=== PATIENT | male | born 1955 | race Caucasian/White ===

== ENCOUNTER → 2018-01-23 | Outpatient (CLI) | payer BC ==
--- NOTE | 2018-01-24 08:15 | XR ---
EXAMINATION TYPE: XR shoulder complete LT DATE OF EXAM: 01/23/2018 CLINICAL HISTORY: pain COMPARISON: NONE TECHNIQUE: Three views of the left shoulder are obtained. FINDINGS: There is no acute fracture/dislocation evident. The acromioclavicular and glenohumeral joana int spaces appear within normal limits. The visualized ribs are intact and unremarkable. IMPRESSION: 1. There is no acute fracture or dislocation. ICD 10 NO FRACTURE, INITIAL EVALUATION
--- NOTE | 2018-01-24 08:18 | XR ---
EXAMINATION TYPE: XR wrist limited LT DATE OF EXAM: 01/23/2018 CLINICAL HISTORY: pain TECHNIQUE: Frontal, lateral and oblique images of the left wrist are obtained. COMPARISON: None. FINDINGS: There is no acute fracture/dislocation evident. The joint spaces appear within normal salas its. The overlying soft tissue appears unremarkable. IMPRESSION: There is no acute fracture or dislocation seen. ICD 10 NO FRACTURE, INITIAL EVALUATION
== END | disposition home or self-care (01) ==
LOC: RADXRMAIN 16:30
PROVIDERS: ATTEND Physician Assistant
DX: M25.512 Pain in left shoulder (principal); M25.532 Pain in left wrist

== ENCOUNTER → 2018-03-16 | Outpatient (CLI) | payer BC ==
--- NOTE | 2018-03-17 08:57 | MR ---
EXAMINATION TYPE: MR shoulder LT wo con DATE OF EXAM: 03/16/2018 COMPARISON: Outside x-ray dated 02/20/2018 HISTORY: Fell on Left Shoulder 2 months ago TECHNIQUE: Multiplanar, multisequence imaging of the left shoulder is performed without contrast. FINDINGS: There is a large area of marrow edema involving the greater tuberosity. Appears to be flattening tube rosity suggestion of a linear lucency extending into the metaphysis compatible with a hairline fractu re. Abnormal signal involving the superior labrum suggestive of SLAP tear. There appears to be an abnorma l appearance of the inferior glenohumeral ligament suspicious for disruption. Marrow edema along the inferior rim of the glenoid. Suspicion for a Bankart deformity. There is diffuse abnormal signal throughout the anterior fibers of the supraspinatus tendon compatibl e with severe tendinopathy measuring a thickness 19 mm extending a length of 17 mm. No retraction. Infraspinatus tendon appears intact. Subscapularis tendon intact. Biceps tendon intact.. There is a tiny glenohumeral joint effusion. There is arthropathy of the AC joint. Mild impingement upon the supraspinatus musculotendinous juncti on. IMPRESSION: 1. Large area of marrow edema involving the greater tuberosity with findings suggestive of a hairline fracture. 2. SLAP tear. 3. Severe tendinosis distal margin supraspinatus tendon extending a length of 17 mm with partial thro ugh thickness tear but no retraction. 4. Disruption of the inferior glenohumeral ligament with findings suspicious of a Bankart deformity.
== END | disposition home or self-care (01) ==
LOC: RADMRIMAIN 17:41
PROVIDERS: ATTEND Orthopaedic Surgery
DX: S43.432A Superior glenoid labrum lesion of left shoulder, initial encounter (principal); M75.102 Unspecified rotator cuff tear or rupture of left shoulder, not specified as traumatic; M24.212 Disorder of ligament, left shoulder; M75.82 Other shoulder lesions, left shoulder

== ENCOUNTER 2018-11-04 15:09 | Inpatient (IN) | payer BC ==
[2018-11-04] MEDS ORDERED: ALBUTEROL NEBULIZED 2.5 MG/3 ML INHALATION STA (16:55)
[2018-11-04] MEDS ORDERED: IPRATROPIUM 0.5 MG/2.5 ML NEBU INHALATION STA (16:55)
[2018-11-04] MEDS ORDERED: DEXAMETHASONE 4 MG TAB PO STA (16:56)
--- NOTE | 2018-11-04 17:00 | ED ---
General Adult HPI - General Chief complaint: Shortness of Breath Stated complaint: SOB Time Seen by Provider: 11/04/18 16:09 Source: patient Mode of arrival: wheelchair Limitations: no limitations - History of Present Illness Initial comments: Dictation was produced using [employer] dictation software. please excuse any grammatical, word or spelling errors. Chief Complaint: 63-year-old male presents with chief complaint of shortness of breath and left eye pain. History of Present Illness: He is a 63-year-old male presents with multiple complaints. He was seen at [facility] told to come to the emergency department for definitive treatment. Patient states she's been short of breath for several days. He reports that he does have history of COPD. He still does continue to smoke. She also has history of diabetes. Denies constitutional symptoms. Patient states his pain is worse with exertion. Patient also complains of left eye pain. Denies any vision changes or color perception changes. Patient denies any worsening pain with movement. The ROS documented in this emergency department record has been reviewed and confirmed by me. Those systems with pertinent positive or negative responses have been documented in the HPI. All other systems are other negative and/or noncontributory. PHYSICAL EXAM: General Impression: Alert and oriented x3, not in acute distress HEENT: Normocephalic atraumatic, extra-ocular movements intact, pupils equal and reactive to light bilaterally, mucous membranes moist, bilateral eyes appear symmetrical. There is no conjunctival injection. No steamy cornea. Retina seen on funduscopic exam appears benign. No proptosis or enophthalmos. Cardiovascular: Heart regular rate and rhythm, S1&S2 audible, no murmurs, rubs or gallops Chest: Bilateral lung wheezing Abdomen: Bowel sounds present, abdomen soft, non-tender, non-distended, no organomegaly Musculoskeletal: Pulses present and equal in all extremities, 1+ pitting edema bilaterally Motor: no focal deficits noted Neurological: CN II-XII grossly intact, no focal motor or sensory deficits noted Skin: Intact with no visualized rashes Psych: Normal affect and mood ED course: 63-year-old male presents with chief complaint of shortness of breath and left eye pain. Signs upon arrival are within acceptable limits.Patient given breathing treatment, steroids laboratory evaluation obtained. CBC unremarkable. Coag panel unremarkable. Metabolic panel is unremarkable. Cardiac enzymes are negative. Chest x-ray shows no acute processes. Patient reevaluated and still showing signs of respiratory distress. Patient's degree of respiratory distress does not appear to be severe to the point of requiring BiPAP. Patient still wheezy. Patient given Toradol for complaints of sore throat and mild retro-orbital pain. Patient be admitted. Discussed patient with Dr. España who is willing to accept admission. He requests pulmonology be on consult. Patient ordered for [id number] breathing treatments, daily azithromycin and daily prednisone. Patient is understandable and agreeable to disposition. EKG interpretation: Ventricular rate 80, normal sinus rhythm, LA interval 170, QS 90, QTc 431. No LA prolongation, no QTC prolongation, no ST or T-wave changes noted. s. Overall, this EKG is unremarkable - Related Data Allergies Allergy/AdvReac Type Severity Reaction Status Date / Time No Known Allergies Allergy Verified 11/04/18 16:12 Review of Systems ROS Statement: Those systems with pertinent positive or pertinent negative responses have been documented in the HPI. ROS Other: All systems not noted in ROS Statement are negative. Past Medical History Past Medical History: Diabetes Mellitus History of Any Multi-Drug Resistant Organisms: None Reported Past Surgical History: No Surgical Hx Reported Past Psychological History: Depression Smoking Status: Current every day smoker Past Alcohol Use History: None Reported, Occasional Past Drug Use History: None Reported General Exam Limitations: no limitations Course Vital Signs 11/04/18 11/04/18 11/04/18 15:25 16:10 16:30 Temperature 98.4 F Pulse Rate 92 93 80 Respiratory 18 22 22 Rate Blood Pressure 143/106 O2 Sat by Pulse 96 94 L 97 Oximetry 11/04/18 11/04/18 11/04/18 17:00 17:09 17:16 Temperature Pulse Rate 79 82 80 Respiratory 24 Rate Blood Pressure O2 Sat by Pulse 97 Oximetry 11/04/18 11/04/18 11/04/18 17:25 17:30 17:37 Temperature Pulse Rate 87 86 Respiratory 24 25 H Rate Blood Pressure O2 Sat by Pulse 98 Oximetry Medical Decision Making - Lab Data Result diagrams: 11/04/18 16:20 11/04/18 16:20 Lab Results 11/04/18 11/04/18 11/04/18 Range/Units 16:20 16:20 16:20 WBC 7.7 (3.8-10.6) k/uL RBC 5.65 (4.30-5.90) m/uL Hgb 15.4 (13.0-17.5) gm/dL Hct 49.5 (39.0-53.0) % MCV 87.7 (80.0-100.0) fL MCH 27.3 (25.0-35.0) pg MCHC 31.1 (31.0-37.0) g/dL RDW 13.4 (11.5-15.5) % Plt Count 136 L (150-450) k/uL Neutrophils % 81 % Lymphocytes % 9 % Monocytes % 8 % Eosinophils % 1 % Basophils % 0 % Neutrophils # 6.3 (1.3-7.7) k/uL Lymphocytes # 0.7 L (1.0-4.8) k/uL Monocytes # 0.6 (0-1.0) k/uL Eosinophils # 0.0 (0-0.7) k/uL Basophils # 0.0 (0-0.2) k/uL PT (9.0-12.0) sec INR (<1.2) APTT (22.0-30.0) sec Sodium 136 L (137-145) mmol/L Potassium 4.6 (3.5-5.1) mmol/L Chloride 100 (98-107) mmol/L Carbon Dioxide 28 (22-30) mmol/L Anion Gap 8 mmol/L BUN 23 H (9-20) mg/dL Creatinine 1.10 (0.66-1.25) mg/dL Est GFR (CKD-EPI)AfAm 83 (>60 ml/min/1.73 sqM) Est GFR (CKD-EPI)NonAf 72 (>60 ml/min/1.73 sqM) Glucose 97 (74-99) mg/dL Calcium 9.2 (8.4-10.2) mg/dL Magnesium 1.9 (1.6-2.3) mg/dL Total Bilirubin 0.4 (0.2-1.3) mg/dL AST 37 (17-59) U/L ALT 38 (21-72) U/L Alkaline Phosphatase 93 (38-126) U/L Troponin I (0.000-0.034) ng/mL NT-Pro-B Natriuret Pep 38 pg/mL Total Protein 7.1 (6.3-8.2) g/dL Albumin 4.2 (3.5-5.0) g/dL 11/04/18 11/04/18 Range/Units 16:20 16:20 WBC (3.8-10.6) k/uL RBC (4.30-5.90) m/uL Hgb (13.0-17.5) gm/dL Hct (39.0-53.0) % MCV (80.0-100.0) fL MCH (25.0-35.0) pg MCHC (31.0-37.0) g/dL RDW (11.5-15.5) % Plt Count (150-450) k/uL Neutrophils % % Lymphocytes % % Monocytes % % Eosinophils % % Basophils % % Neutrophils # (1.3-7.7) k/uL Lymphocytes # (1.0-4.8) k/uL Monocytes # (0-1.0) k/uL Eosinophils # (0-0.7) k/uL Basophils # (0-0.2) k/uL PT 10.2 (9.0-12.0) sec INR 0.9 (<1.2) APTT 25.7 (22.0-30.0) sec Sodium (137-145) mmol/L Potassium (3.5-5.1) mmol/L Chloride (98-107) mmol/L Carbon Dioxide (22-30) mmol/L Anion Gap mmol/L BUN (9-20) mg/dL Creatinine (0.66-1.25) mg/dL Est GFR (CKD-EPI)AfAm (>60 ml/min/1.73 sqM) Est GFR (CKD-EPI)NonAf (>60 ml/min/1.73 sqM) Glucose (74-99) mg/dL Calcium (8.4-10.2) mg/dL Magnesium (1.6-2.3) mg/dL Total Bilirubin (0.2-1.3) mg/dL AST (17-59) U/L ALT (21-72) U/L Alkaline Phosphatase (38-126) U/L Troponin I <0.012 (0.000-0.034) ng/mL NT-Pro-B Natriuret Pep pg/mL Total Protein (6.3-8.2) g/dL Albumin (3.5-5.0) g/dL Disposition Clinical Impression: COPD exacerbation Disposition: ADMITTED IP TO THIS HOSP Condition: Fair Referrals: Rommel España MD [Primary Care Provider] - 1-2 days Time of Disposition: 18:45
[2018-11-04 17:16] LABS: Basophils % (A) 0 %; Eosinophils % (A) 1 %; HCT 49.5 % (39.0-53.0); HGB 15.4 gm/dL (13.0-17.5); Lymphocytes # (A) 0.7 k/uL (1.0-4.8); Lymphocytes % (A) 9 %; MCH 27.3 pg (25.0-35.0); MCHC 31.1 g/dL (31.0-37.0); MCV 87.7 fL (80.0-100.0); Mean Platelet Volume 9.3; Monocytes # (A) 0.6 k/uL (0-1.0); Monocytes % (A) 8 %; Neutrophils # (A) 6.3 k/uL (1.3-7.7); Neutrophils % (A) 81 %; Platelet Count 136 k/uL (150-450); RBC 5.65 m/uL (4.30-5.90); RDW 13.4 % (11.5-15.5); WBC 7.7 k/uL (3.8-10.6)
[2018-11-04 17:21] LABS: INR 0.9 (<1.2); Partial Thromboplastin Time 25.7 sec (22.0-30.0); Prothrombin Time 10.2 sec (9.0-12.0)
[2018-11-04 17:30] LABS: Albumin 4.2 g/dL (3.5-5.0); Calcium 9.2 mg/dL (8.4-10.2); Magnesium 1.9 mg/dL (1.6-2.3); Potassium 4.6 mmol/L (3.5-5.1); Total Bilirubin 0.4 mg/dL (0.2-1.3); Total Protein 7.1 g/dL (6.3-8.2)
--- NOTE | 2018-11-04 18:26 | XR ---
EXAMINATION TYPE: XR chest 2V DATE OF EXAM: 11/04/2018 COMPARISON: September 28, 2013 HISTORY: Difficulty breathing TECHNIQUE: Frontal and lateral views of the chest are obtained. FINDINGS: There is no heart failure nor confluent pneumonic infiltrate. Costophrenic angles are kaylee r. There are chest leads. Bony thorax is intact. IMPRESSION: No active cardiopulmonary disease. Normal heart. No change.
[2018-11-04] MEDS ORDERED: KETOROLAC 30 MG/ML 1 ML VIAL IVP STA (18:41)
[2018-11-04] MEDS: NICOTINE 14MG/24HR PATCH TRANSDERM SCH (20:43)
[2018-11-04] MEDS: IPRATROPIUM-ALBUTEROL 3 ML NEB INHALATION SCH (21:29)
[2018-11-04] MEDS ORDERED: ACETAMINOPHEN TAB 500 MG TAB PO PRN (22:05)
[2018-11-04] MEDS: SODIUM CHLORIDE 0.9% 1,000 ML IV SCH (23:24)
[2018-11-05] MEDS ORDERED: IPRATROPIUM-ALBUTEROL 3 ML NEB INHALATION PRN (02:26)
[2018-11-05 07:13] LABS: Glucose,Whole Blood 127 mg/dL (75-99)
[2018-11-05] MEDS: INSULIN ASPART (NovoLOG) 100 UNIT/ML VIAL SQ SCH ×3 (07:24→17:13)
[2018-11-05] MEDS: CITALOPRAM HYDROBROMIDE 20 MG TAB PO SCH (07:26)
[2018-11-05] MEDS: AZITHROMYCIN 500 MG TAB PO SCH (07:26)
[2018-11-05] MEDS ORDERED: predniSONE 20 MG TAB PO SCH (09:00)
[2018-11-05] MEDS: OSELTAMIVIR 75 MG CAP PO SCH ×2 (09:07→22:05)
[2018-11-05] MEDS: IPRATROPIUM-ALBUTEROL 3 ML NEB INHALATION SCH ×4 (09:51→21:27)
--- NOTE | 2018-11-05 11:36 | P.HPIM ---
History of Present Illness 63-year-old male presented the emergency room with complaints of increasing shortness of breath. For 2 days patient's had fever chills headache muscle aches was found to have influenza A. Patient is a smoker with a history of COPD and diabetes type 2 Review of Systems Constitutional: Reports chills, Reports fever Eyes: left pain Respiratory: Reports congestion, Reports cough Past Medical History Past Medical History: Diabetes Mellitus History of Any Multi-Drug Resistant Organisms: None Reported Past Surgical History: No Surgical Hx Reported Past Psychological History: Depression Smoking Status: Current every day smoker Past Alcohol Use History: None Reported, Occasional Past Drug Use History: None Reported - Past Family History Mother Family Medical History: Myocardial Infarction (AL) Medications and Allergies Home Medications Medication Instructions Recorded Confirmed Type Citalopram Hydrobromide [CeleXA] 20 mg PO DAILY 11/04/18 11/04/18 History Allergies Allergy/AdvReac Type Severity Reaction Status Date / Time No Known Allergies Allergy Verified 11/04/18 16:12 Physical Exam Vitals: Vital Signs Temp Pulse Pulse Resp BP BP Pulse Ox 11/05/18 11:13 76 11/05/18 11:01 72 11/05/18 07:00 98.6 F 64 16 121/77 94 L 11/05/18 02:54 80 11/05/18 02:44 80 11/04/18 23:00 98.0 F 80 20 97/60 95 11/04/18 21:39 98.2 F 86 20 149/79 93 L 11/04/18 21:37 80 11/04/18 21:29 76 11/04/18 19:00 105 H 20 157/86 95 11/04/18 18:30 96 24 134/81 99 11/04/18 18:00 105 H 20 114/90 96 11/04/18 17:37 25 H 11/04/18 17:30 86 24 98 11/04/18 17:25 87 11/04/18 17:16 80 11/04/18 17:09 82 11/04/18 17:00 79 24 97 11/04/18 16:30 80 22 97 11/04/18 16:10 93 22 94 L 11/04/18 15:25 98.4 F 92 18 143/106 96 Intake and Output 11/04/18 11/05/18 11/05/18 22:59 06:59 14:59 Intake Total 130 140 296 Balance 130 140 296 Intake: Amount of Fluid Infused ( 50 ml) Intake, IV Titration 80 140 Amount Sodium Chloride 0.9% 1, 80 140 000 ml @ 20 mls/hr IV . Q24H KAYLENE Rx#:[id number] Oral 296 Other: Weight 127.006 kg - Constitutional General appearance: mild distress - EENT Left eye pain Eyes: PERRLA Ears: bilateral: normal - Neck Neck: normal ROM - Respiratory Respiratory: bilateral: wheezing - Cardiovascular Rhythm: regular - Gastrointestinal General gastrointestinal: soft - Integumentary Integumentary: normal - Neurologic Neurologic: CNII-XII intact - Psychiatric Psychiatric: A&O x's 3, appropriate affect, intact judgment & insight Results CBC & Chem 7: 11/04/18 16:20 11/04/18 16:20 Labs: Abnormal Lab Results - Last 24 Hours (Table) 11/04/18 11/04/18 11/04/18 Range/Units 16:20 16:20 19:26 Plt Count 136 L (150-450) k/uL Lymphocytes # 0.7 L (1.0-4.8) k/uL Sodium 136 L (137-145) mmol/L BUN 23 H (9-20) mg/dL POC Glucose (mg/dL) (75-99) mg/dL Influenza Type A RNA Detected H (Not Detectd) 11/05/18 Range/Units 07:12 Plt Count (150-450) k/uL Lymphocytes # (1.0-4.8) k/uL Sodium (137-145) mmol/L BUN (9-20) mg/dL POC Glucose (mg/dL) 127 H (75-99) mg/dL Influenza Type A RNA (Not Detectd) Chest x-ray: report reviewed Thrombosis Risk Factor Assmnt - Choose All That Apply Any of the Below Risk Factors Present?: No Other Risk Factors: Yes Each Risk Factor Represents 2 Points: Age 61-74 years Other congenital or acquired thrombophilia - If yes, enter type in comment: No Thrombosis Risk Factor Assessment Total Risk Factor Score: 2 Thrombosis Risk Factor Assessment Level: Low Risk Assessment and Plan Plan: Assessment COPD exacerbation Influenza A Tobacco use Diabetes type 2 Left eye pain Plan On Tamiflu antibiotics steroids bronchodilators Consultation pulmonology Left eye pain ophthalmology
[2018-11-05 12:05] LABS: Glucose,Whole Blood 151 mg/dL (75-99)
[2018-11-05 14:36] LABS: Hemoglobin A1C 6.4 % (4.0-6.0)
--- NOTE | 2018-11-05 16:48 | CONS ---
CONSULTATION This is a pulmonary critical care consultation. DATE OF SERVICE: November 05, 2018. REASON FOR CONSULTATION: Shortness of breath. HISTORY OF PRESENT ILLNESS: A 63-year-old male who was seen in the emergency room by Dr. Brand yesterday. The patient apparently presented to the emergency room with complaints of shortness of breath. The patient was apparently seen initially at [facility] and told to come to the emergency department for definitive therapy. The patient admits to increasing shortness of breath for a couple of days. He does have underlying COPD, but apparently has never seen a lung doctor. His primary is Dr. Rommel España. He still does continue to smoke. His complaints included muscle aches and joint aches, but in addition to all of that, the patient was found to have a fever, chills, cough, phlegm production and difficulty breathing with wheezing and chest tightness. He denies any nausea, vomiting or diarrhea. There is no chest pain or chest pressure. The patient is feeling a bit better today than he did yesterday. He has been smoking for a number of years. The patient did not get a flu shot this fall. His chest x-ray that was done showed no evidence of any infiltrates. ALLERGIES: His allergies are denied. MEDICATIONS: Home medications were just Celexa. PAST MEDICAL HISTORY: Includes COPD, although the patient is not currently being treated. SURGICAL HISTORY: Negative. FAMILY HISTORY: Noncontributory. SOCIAL HISTORY: Positive for ongoing tobacco use with nicotine addiction. He uses alcohol occasionally and there is no illicit drug use. The rest of the history is not too remarkable. There is a vague history of diabetes and depression although he denies it. He is on Celexa. REVIEW OF SYSTEMS: CONSTITUTIONAL: Fever, chills. Neurologic is negative. HEENT negative. Cardiovascular negative. Pulmonary: Shortness of breath. Chest tightness, wheezing, cough with some phlegm production but mostly nonproductive. GI negative. negative. Rheumatologic: Negative. Immunologic negative. ENDOCRINOLOGIC: Negative. DERMATOLOGIC: Negative. PHYSICAL EXAMINATION: Current vital signs are reviewed. Temperature is 98.6, heart rate 72, respiratory rate 16, blood pressure 121/77, room-air saturation 94%. Mean arterial pressure is 91. Appears in no acute distress. HEENT examination is grossly unremarkable. Mucous membranes are moist. No oral lesions. Not requiring any supplemental oxygen. NECK: Supple. Full range of motion. No adenopathy or thyromegaly. Cardiovascular examination reveals regular rhythm rate. S1, S2 normal. Heart rate in mid 70s. No murmur. LUNGS: Coarse inspiratory and expiratory wheezes and rhonchi. There is prolongation on forced maneuver. Breath sounds are equal bilaterally but diminished throughout. No crackles. Adventitious lung sounds are more prominent on forced maneuver. ABDOMEN: Soft. Bowel sounds are heard. There is no masses or tenderness. Extremities are intact. No cyanosis, clubbing, or edema. Skin without rash. Neurologic examination is brief but nonfocal. LAB DATA: Reviewed. White count 7.7, hemoglobin 15.4, hematocrit 49.5, platelet count 136,000. PT 10.2, INR 0.9, PTT is 25.7. Sodium 136, potassium 4.6, chloride 100, CO2 28, anion gap 8, BUN and creatinine were 23 and 1.10. Influenza A studies were positive. Chest x-ray shows no acute abnormality. Microbiologic studies are negative. MEDICATIONS: Reviewed. Currently, he is on Tylenol, Zithromax, Celexa, insulin, albuterol and Atrovent updrafts q.i.d. and p.r.n. nicotine patch, Tamiflu, prednisone, and a saline IV. ASSESSMENT: 1. Chronic obstructive pulmonary disease exacerbation, complicated by purulent tracheobronchitis and likely triggered by influenza A infection. 2. Influenza A infection. 3. Probable chronic obstructive pulmonary disease, although the patient has never seen a grab jack worker and never had PFTs. 4. Ongoing tobacco use, nicotine addiction. 5. Vague history of depression. 6. Vague history of diabetes. 7. Vague history of hypertension. PLAN: The patient's medications are reviewed. He is on prednisone. We will add some Symbicort. He is already on updrafts. Additional recommendations and suggestions are forthcoming. Prognosis is guarded. He should continue on his Tamiflu for the full 5 days. The oral antibiotic in the form of azithromycin is fine. No additional recommendations are made at this time. The patient will follow up in our office and will need a complete pulmonary function test (PFT). MMODL / IJN: [id number] / [facility]
[2018-11-05 16:55] LABS: Glucose,Whole Blood 129 mg/dL (75-99)
[2018-11-05] MEDS: methylPREDNISolone SOD SUCCI 125 MG/2 ML VIAL IV SCH (17:15)
[2018-11-05 20:27] LABS: Glucose,Whole Blood 138 mg/dL (75-99)
[2018-11-05] MEDS: SYMBICORT 160-4.5 MCG INHALER INHALATION SCH (21:27)
[2018-11-05] MEDS: NICOTINE 14MG/24HR PATCH TRANSDERM SCH (22:03)
[2018-11-06] MEDS: INSULIN ASPART (NovoLOG) 100 UNIT/ML VIAL SQ SCH ×3 (00:15→12:50)
[2018-11-06] MEDS: methylPREDNISolone SOD SUCCI 125 MG/2 ML VIAL IV SCH ×3 (00:20→12:50)
[2018-11-06] MEDS: SODIUM CHLORIDE 0.9% 1,000 ML IV SCH (02:53)
[2018-11-06 07:01] LABS: Glucose,Whole Blood 145 mg/dL (75-99)
[2018-11-06] MEDS: IPRATROPIUM-ALBUTEROL 3 ML NEB INHALATION SCH ×2 (07:10→11:13)
[2018-11-06] MEDS: SYMBICORT 160-4.5 MCG INHALER INHALATION SCH (07:10)
[2018-11-06] MEDS: CITALOPRAM HYDROBROMIDE 20 MG TAB PO SCH (07:36)
[2018-11-06] MEDS: OSELTAMIVIR 75 MG CAP PO SCH (07:37)
[2018-11-06] MEDS: AZITHROMYCIN 500 MG TAB PO SCH (07:37)
[2018-11-06 08:04] VITALS: BP 125/72; RESP 16; TEMP 97.4
--- NOTE | 2018-11-06 10:45 | CONS ---
CONSULTATION Today's date is 11/06/2018. HISTORY: This is a 63-year-old white male who presented to the emergency room complaining of shortness of breath. The patient stated that he had a fever of 2 days duration along with headaches, muscle aches, and pain behind his left eye. On workup, he was diagnosed with influenza type A. The patient also has a history of type 2, diabetes, and COPD. He states that he has not had an eye exam in over 20 years. EXAM: Visual acuity at near with correction measured 20/20 bilaterally. The pupils were equal and reactive to light. There was no afferent defect. Extraocular movements were full in all gaze positions. On penlight exam, the anterior segments were "clear and quiet" bilaterally. There appeared to be mild nuclear sclerotic cataract changes. Fundus exam revealed normal-appearing maculae, vessels and discs. IMPRESSION: 1. Eye pain of left eye. Because of the nature of this pain, it being of "several days duration and pressure sensation", it is very likely this is secondary to a sinus etiology. The patient in fact states that since he has been on antibiotics and admission to the hospital, the pain has subsided significantly and it is nearly resolved at this time. I would recommend continuing the antibiotics and I believe this is likely to resolve upon discharge with an oral antibiotic. 2. Diabetic retinopathy. The patient has not had a an eye exam in some time, and upon discharge he should certainly be seen in an outpatient setting where a more thorough exam can be accomplished. 3. Nuclear sclerosis. The cataracts appear mild and it is not likely that they require attention at this time. MMODL / IJN: [id number] /
[2018-11-06 11:15] VITALS: PULSE 80
[2018-11-06 11:57] LABS: Glucose,Whole Blood 140 mg/dL (75-99)
--- NOTE | 2018-11-06 12:58 | P.PN ---
Subjective Progress Note Date: 11/06/18 Principal diagnosis: Acute COPD exacerbation, complicated with purulent tracheobronchitis, and influenza A infection A 61-year-old white male patient with history of COPD, ongoing tobacco use, diabetes, hypertension and depression who was admitted to the hospital 11/04/2018 with complaints of worsening shortness of breath, muscle aches and joint aches fever, chills cough, phlegm production. Patient was as a for influenza A, he was admitted for inpatient management. Today on 11/06/2018 were seen patient in follow-up on medical surgical floor. He is calm and comfortable, he states his breathing is improving, he is currently on 2 L per nasal cannula of oxygen, and his sat is 94-98%, feeling better, less congested and wheezy, has some residual wheezing, but overall improving, afebrile. Hemodynamically stable, no culture sputum, as the patient could not produce a sputum for analysis. He is on oral course of Tamiflu, IV steroids, and oral Zithromax. Objective - Vital Signs Vital signs: Vital Signs Temp 97.4 F L 11/06/18 07:00 Pulse 80 11/06/18 11:22 Resp 16 11/06/18 07:00 BP 125/72 11/06/18 07:00 Pulse Ox 91 L 11/06/18 11:42 Intake & Output 11/05/18 11/06/18 11/06/18 18:59 06:59 18:59 Intake Total 1028 Balance 1028 Intake: Oral 1028 Other: Voiding Method Toilet # Voids 2 1 - Exam GENERAL EXAM: Alert, pleasant, 63-year-old white male on 2 L per nasal cannula, comfortable in no apparent distress. HEAD: Normocephalic/atraumatic. EYES: Normal reaction of pupils, equal size. Conjunctiva pink, sclera white. NOSE: Clear with pink turbinates. THROAT: No erythema or exudates. NECK: No masses, no JVD, no thyroid enlargement, no adenopathy. CHEST: No chest wall deformity. Symmetrical expansion. LUNGS: Equal air entry with some scattered wheezes, overall less. Spastic compared to yesterday's exam CVS: Regular rate and rhythm, normal S1 and S2, no gallops, no murmurs, no rubs ABDOMEN: Soft, nontender. No hepatosplenomegaly, normal bowel sounds, no guarding or rigidity. EXTREMITIES: No clubbing, no edema, no cyanosis, 2+ pulses and upper and lower extremities. MUSCULOSKELETAL: Muscle strength and tone normal. SPINE: No scoliosis or deformity SKIN: No rashes CENTRAL NERVOUS SYSTEM: Alert and oriented -3. No focal deficits, tone is normal in all 4 extremities. PSYCHIATRIC: Alert and oriented -3. Appropriate affect. Intact judgment and insight. - Labs CBC & Chem 7: 11/04/18 16:20 11/04/18 16:20 Labs: Abnormal Lab Results - Last 24 Hours (Table) 11/04/18 11/05/18 11/05/18 Range/Units 16:20 16:44 20:26 POC Glucose (mg/dL) 129 H 138 H (75-99) mg/dL Hemoglobin A1c 6.4 H (4.0-6.0) % 11/06/18 11/06/18 Range/Units 06:58 11:46 POC Glucose (mg/dL) 145 H 140 H (75-99) mg/dL Hemoglobin A1c (4.0-6.0) % Assessment and Plan Plan: Assessment: #1. Exacerbation of chronic obstructive pulmonary disease complicated by pro longed tracheobronchitis and likely triggered by influenza A infection #2. Influenza A infection #3. Suspect underlying COPD #4. Ongoing tobacco use, nicotine addiction #5. History of depression #6. History of diabetes #7. History of hypertension Plan: Patient is improving, let us signs are stable, no acute events overnight, from pulmonary perspective he can be discharged home today to finish his course of Tamiflu, oral antibiotics, and prednisone taper, will need home oxygen asses sment, he will need to rescue inhaler at home, we will do PFT in the office, he will need follow-up with Dr. Gutierres in the office I performed a history & physical examination of the patient and discussed their management with my nurse practitioner, Jordana Molina. I reviewed the nurse practitioner's note and agree with the documented findings and plan of care. Lung sounds are positive for scattered wheezes. The findings and the impression was discussed with the patient. I attest to the documentation by the nurse practitioner. Time with Patient: Less than 30
--- NOTE | 2018-11-06 13:22 | P.DS ---
<Jackie Haney - Last Filed: 11/06/18 13:06> Providers Expected date of discharge: 11/06/18 Hospital Course: Final Diagnoses: -Exacerbation of chronic obstructive pulmonary disease,probably r/t infleunza A,complicated by tracheobronchitis - Influenza A infection - Possible underlying COPD, PFTs outpatient - Ongoing nicotine abuse, dependence - diabetes mellitus this is a 63-year-old gentleman admitted with acute COPD exacerbation, tracheobronchitis,influenza a in a patient with ongoing nicotine useand multiple other medical issues. Evaluated by ophthalmology, pulmonary. Maintained on gentle IV fluid hydration, nebulized bronchodilators, steroids, antibiotics, Tamiflu. significant clinical improvement. O2 sat on room air after ambulation 91%. Cleared by all consults for discharge. Patient is being discharged home in stable condition with guarded prognosis. EXAM: GENERAL: Alert and oriented 3, no acute distress LUNGS: Equal air entry with occasional fine expiratory scattered wheeze CVS: Regular rate and rhythm, normal S1 and S2, no gallops, no murmurs, no rubs ABDOMEN: Soft, nontender. No hepatosplenomegaly, normal bowel sounds, no guarding or rigidity. NERVOUS: No focal deficits The impression and plan of care has been dictated as directed. : I performed a history and examination of this patient, discussed the same with the dictator. I agree with the dictator's note ,documented as a scribe. Any additional findings or plans will be noted. Time taken: 35 minutes Patient Condition at Discharge: Stable Plan - Discharge Summary Discharge Rx Participant: No New Discharge Prescriptions: New Nicotine 14Mg/24Hr Patch [Habitrol] 1 patch TRANSDERM Q24H #30 patch predniSONE 10 mg PO DIRECTED #30 tab Albuterol Sulfate [Proair Hfa] 2 puff INHALATION Q6HR PRN #1 inhaler PRN Reason: Shortness Of Breath Budesonide-Formot 160-4.5 Mcg [Symbicort 160-4.5 Mcg Inhaler] 2 puff INHALATION RT-BID #1 inh Oseltamivir [Tamiflu] 75 mg PO Q12HR #7 cap Azithromycin [Zithromax] 500 mg PO DAILY #5 tab Continue Citalopram Hydrobromide [CeleXA] 20 mg PO DAILY Discharge Medication List Citalopram Hydrobromide [CeleXA] 20 mg PO DAILY 11/04/18 [History] Albuterol Sulfate [Proair Hfa] 2 puff INHALATION Q6HR PRN #1 inhaler 11/06/18 [Rx] Azithromycin [Zithromax] 500 mg PO DAILY #5 tab 11/06/18 [Rx] Budesonide-Formot 160-4.5 Mcg [Symbicort 160-4.5 Mcg Inhaler] 2 puff INHALATION RT-BID #1 inh 11/06/18 [Rx] Nicotine 14Mg/24Hr Patch [Habitrol] 1 patch TRANSDERM Q24H #30 patch 11/06/18 [Rx] Oseltamivir [Tamiflu] 75 mg PO Q12HR #7 cap 11/06/18 [Rx] predniSONE 10 mg PO DIRECTED #30 tab 11/06/18 [Rx] Follow up Appointment(s)/Referral(s): Rommel España MD [Primary Care Provider] - 3 Days (Please call and schedule appointment) [facility] [NON-STAFF] - As Needed (Glucometer and supplies) Santino Nunez MD [STAFF PHYSICIAN] - 10 Days (Please call and schedule appointment) Liv Espinoza MD [STAFF PHYSICIAN] - 1 Week (Please call and schedule appointment.) Ambulatory/Diagnostic Orders: Complete Blood Count w/diff [LAB.AMB] Time Frame: 3 Days, Location: None Selected Patient Instructions/Handouts: Influenza (DC), COPD (Chronic Obstructive Pulmonary Disease) (DC) Activity/Diet/Wound Care/Special Instructions: 91% on room air after ambulation Diet: Cardiac. consistent carb Activity: Limited until follow up check you your doctor before going back to work Discharge Disposition: HOME SELF-CARE <EmilyAbenaValdemar E - Last Filed: 11/10/18 05:45> Providers Date of admission: 11/04/18 18:41 Attending physician: Rommel España Consults: 11/04/18 18:41 Consult Physician Routine Consulting Provider: Liv Espinoza Consult Reason/Comments: copd Do you want consulting provider notified?: Yes 11/05/18 11:31 Consult Physician Urgent Consulting Provider: Santino Nunez Consult Reason/Comments: eye pain left Do you want consulting provider notified?: Yes Primary care physician: Rommel España Hospital Course: I have discussed the plan and I have reviewed the note with Mendez Nuno and I agree with it except what is mentioned below Pt is seen and examined by me at bed side pt was cleared by pulmonary team for discharge Pt was instructed about the problems and management plan and Pt verbalized understanding and acceptance Pt is found stable and can be discharged to the community but needs follow up as outpt. pt was instructed to follow up with his pcp and import export clerk in one week and he agrees
== END 2018-11-06 14:06 | disposition home or self-care (01) | DRG 192 ==
LOC: EC 15:09 → 4SSUR 18:41
PROVIDERS: ADMIT Family Medicine; ATTEND Family Medicine
DX: J44.1 Chronic obstructive pulmonary disease with (acute) exacerbation (principal); E11.319 Type 2 diabetes mellitus with unspecified diabetic retinopathy without macular edema; E11.36 Type 2 diabetes mellitus with diabetic cataract; F17.200 Nicotine dependence, unspecified, uncomplicated; F32.9 Major depressive disorder, single episode, unspecified; I10 Essential (primary) hypertension; J10.1 Influenza due to other identified influenza virus with other respiratory manifestations; H57.12 Ocular pain, left eye; R60.9 Edema, unspecified; Z79.899 Other long term (current) drug therapy; Z82.49 Family history of ischemic heart disease and other diseases of the circulatory system
CPT/HCPCS: 36415; 71046; 80053; 83036; 83735; 83880; 84484; 85025; 85610; 85730; 87502; 93005; 94640; 96374; 99285

== ENCOUNTER 2019-05-01 12:45 | Emergency (ER) | payer BC ==
[2019-05-01 12:50] VITALS: TEMP 97.6
[2019-05-01] MEDS ORDERED: HYDROmorphone 1 MG/ML 1 ML SYRINGE IVP STA (12:54)
--- NOTE | 2019-05-01 13:04 | ED ---
General Adult HPI - General Chief complaint: Extremity Injury, Lower Stated complaint: Fell /leg caught in ladder Time Seen by Provider: 05/01/19 12:47 Source: EMS, RN notes reviewed, old records reviewed Mode of arrival: EMS Limitations: no limitations - History of Present Illness Initial comments: 63-year-old male patient presents ED chief complaint of right tibia/fibula, ankle pain. Patient reports that he was on a ladder approximately 3 steps up, patient reports that he lost his balance. Patient. He fell on his back however his right lower extremity was caught in the ladder. Patient reports he felt a pop in his ankle. Patient denies any trauma to head or neck. Denies any use of blood denies. Patient denies any chest pain or shortness of breath. Denies all other complaints at this time. Systemic: Pt denies fatigue, fever/chills, rash. Pt denies weakness, night sweats, weight loss. Neuro: Pt denies headache, visual disturbances, syncope or pre-syncope. HEENT: Pt denies ocular discharge or irritation, otalgia, rhinorrhea, pharyngitis or notable lymphadenopathy. Cardiopulmonary: Pt denies chest pain, SOB, heart palpitations, dyspnea on exertion. Abdominal/GI: Pt denies abdominal pain, n/v/d. : Pt denies dysuria, burning w/ urination, frequency/urgency. Denies new onset urinary or bowel incontinence. MSK: Pt denies loss of strength or function in extremities. Neuro: Pt denies new onset weakness, paresthesias. - Related Data Previous Rx's Medication Instructions Recorded Hydrocodone/Acetaminophen [[place] 1 each PO Q6HR PRN 3 Days #12 tab 05/01/19 5-325] Allergies Allergy/AdvReac Type Severity Reaction Status Date / Time No Known Allergies Allergy Verified 05/01/19 14:07 Review of Systems ROS Statement: Those systems with pertinent positive or pertinent negative responses have been documented in the HPI. ROS Other: All systems not noted in ROS Statement are negative. Past Medical History Past Medical History: Diabetes Mellitus History of Any Multi-Drug Resistant Organisms: None Reported Past Surgical History: No Surgical Hx Reported Past Psychological History: Depression Smoking Status: Current every day smoker Past Alcohol Use History: Rare Past Drug Use History: None Reported - Past Family History Mother Family Medical History: Myocardial Infarction ([place]) General Exam - General Exam Comments Initial Comments: Constitutional: NAD, AOX3, Pt has pleasant affect. HEENT: NC/AT, trachea midline, neck supple, no lymphadenopathy. Posterior pharynx non erythematous, without exudates. External ears appear normal, without discharge. Mucous membranes moist. Eyes PERRLA, EOM intact. There is no scleral icterus. No pallor noted. Cardiopulmonary: RRR, no murmurs, rubs or gallops, no JVD noted. Lungs CTAB in anterior and posterior marroquin. No peripheral edema. Abdominal exam: Abdomen soft and non-distended. Abdomen non-tender to palpation in all 4 quadrants. Bowel sounds active in LLQ. No hepatosplenomegaly. No ecchymosis Neuro: CN II-XII grossly intact. No nuchal rigidity. No raccon eyes, no carpenter sign, no hemotympanum. No cervical spinal tenderness. MSK: The lateral aspect of right ankle tender to palpation. Soft tissue swelling noted. Distal pulses intact and equal. Capillary refill less than 2 seconds. Posterior ankle splint placed, patient of neurovascularlyvascular intact after splint placement. No posterior calf tenderness bilaterally, homans sign negative bilaterally. Posterior tibialis and radial pulse +2 bilaterally. Sensation intact in upper and lower extremities. Full active ROM in upper and lower extremities, 5/5 stregnth. Limitations: no limitations Course Vital Signs 05/01/19 05/01/19 12:47 14:49 Temperature 97.6 F Pulse Rate 79 65 Respiratory 16 18 Rate Blood Pressure 164/94 121/80 O2 Sat by Pulse 99 98 Oximetry Medical Decision Making - Medical Decision Making 63-year-old male patient presents ED chief complaint of right tibia/fibula, ankle pain. Patient reports that he was on a ladder approximately 3 steps up, patient reports that he lost his balance. Patient. He fell on his back however his right lower extremity was caught in the ladder. Patient reports he felt a pop in his ankle. Patient denies any trauma to head or neck. Denies any use of blood denies. Patient denies any chest pain or shortness of breath. Denies all other complaints at this time. Patient vital signs stable, afebrile. Physical exam displayed: The lateral aspect of right ankle tender to palpation. Soft tissue swelling noted. Distal pulses intact and equal. Capillary refill less than 2 seconds. Posterior ankle splint placed, patient of neurovascularlyvascular intact after splint placement. A Benavides ankle display lateral subluxation of the talus relation to the distal tibia. Metaphyseal fracture of the fibula. Tiny avulsion fracture medial malleolus. Plain film tibia/fibula, foot do not display acute process. Patient placed in posterior ankle splint. Patient will be discharged with orthopedic follow-up. Patient will use crutches, left her with right lower extremity. Case discussed with Dr. Jaramillo. Disposition Clinical Impression: Fracture of distal fibula Disposition: HOME SELF-CARE Condition: Stable Instructions (If sedation given, give patient instructions): Ankle Fracture (ED) Additional Instructions: Patient to adhere to previously discussed treatment plan and will take medication(s) as directed. Patient to follow up with PCP in 1-2 days. Patient to return to ED if symptoms do not improve. Do not bear weight on right lower extremity. Follow-up with orthopedic surgeon on Friday. Use pain medication only as needed. Prescriptions: Hydrocodone/Acetaminophen [[place] 5-325] 1 each PO Q6HR PRN 3 Days #12 tab PRN Reason: Pain Is patient prescribed a controlled substance at d/c from ED?: Yes When asked, does pt state using other controlled substances?: No If prescribed controlled substance>3 days was MAPS reviewed?: Prescribed <3 Days If opioid is for acute pain is fill amount 7 days or less?: Yes If Rx opioid, was Start Talking consent form obtained?: Yes Referrals: Rommel España MD [Primary Care Provider] - 1-2 days Rodrigue Blunt DO [Medical Doctor] - 1-2 days
--- NOTE | 2019-05-01 13:27 | XR ---
EXAMINATION TYPE: XR ankle complete RT DATE OF EXAM: 05/01/2019 COMPARISON: None HISTORY: Pain fall TECHNIQUE: Three-view right ankle FINDINGS: There is an oblique fracture of the distal metaphyseal fibula. There is lateral subluxation of the talus in relation to the tibia. Tiny avulsion from the inferior medial malleolus is not exclu ded. Posterior tibial fracture is not clearly identified. Follow-up exams can be performed 7-10 days from acute trauma for continued pain. IMPRESSION: 1. Lateral subluxation of the talus in relation to the distal tibia. 2. Metaphyseal fracture of the fibula. 3. Tiny avulsion from the medial malleolus is suspected.
--- NOTE | 2019-05-01 13:28 | XR ---
EXAMINATION TYPE: XR tibia fibula RT DATE OF EXAM: 05/01/2019 COMPARISON: None HISTORY: Fall, pain TECHNIQUE: 2 view right tibia and fibula proximal portions FINDINGS: The proximal tibia and fibula appear intact. Soft tissues appear normal. Knee joint space i s unremarkable. Distal ankle is not included within the [id number]. IMPRESSION: 1. No acute osseous abnormality within the proximal portions of the right tibia and fibula.
--- NOTE | 2019-05-01 13:39 | XR ---
EXAMINATION TYPE: XR foot complete RT DATE OF EXAM: 05/01/2019 COMPARISON: None HISTORY: Three-view right foot TECHNIQUE: Right foot is examined in 3 projections. FINDINGS: No acute fractures or dislocations are evident. Joint spaces are preserved. Soft tissues ar e unremarkable. Plantar calcaneal heel spur is present. Please also see ankle dictation same date. IMPRESSION: 1. No acute osseous abnormality within the foot. 2. Plantar calcaneal heel spur. 3. Please see ankle dictation same date.
[2019-05-01 14:51] VITALS: BP 121/80; PULSE 65; RESP 18
[2019-05-01] MEDS ORDERED: HYDROmorphone 0.5 MG/0.5 ML SYRINGE IM STA (15:09)
== END 2019-05-01 15:50 | disposition home or self-care (01) ==
LOC: EC 12:45
DX: S82.831A Other fracture of upper and lower end of right fibula, initial encounter for closed fracture (principal); F17.200 Nicotine dependence, unspecified, uncomplicated; W11.XXXA Fall on and from ladder, initial encounter; Y92.009 Unspecified place in unspecified non-institutional (private) residence as the place of occurrence of the external cause
CPT/HCPCS: 73590; 73610; 73630; 99284; 29515; 96374; 96372; J1170 ×2

== ENCOUNTER → 2019-05-07 | Outpatient (CLI) | payer BC ==
--- NOTE | 2019-05-07 12:17 | XR ---
EXAMINATION TYPE: XR chest 2V DATE OF EXAM: 05/07/2019 COMPARISON: 11/04/2018 HISTORY: Preoperative evaluation for ankle surgery. History of COPD. TECHNIQUE: Frontal and lateral views of the chest are obtained. FINDINGS: There is no focal air space opacity, pleural effusion, or pneumothorax seen. Pulmonary hy perinflation and flattening of the diaphragms relates to the patient's known COPD. The cardiac silhou ette size is upper limits of normal but stable. The osseous structures are intact. IMPRESSION: No acute cardiopulmonary process.
== END ==
LOC: LABWHC1 09:40
PROVIDERS: ATTEND Family Medicine
DX: J44.9 Chronic obstructive pulmonary disease, unspecified (principal)
CPT/HCPCS: 71046

== ENCOUNTER → 2021-01-12 | Outpatient (CLI) | payer BC ==
--- NOTE | 2021-01-12 12:03 | XR ---
EXAMINATION TYPE: XR chest 2V DATE OF EXAM: 01/12/2021 COMPARISON: 05/07/2019 HISTORY: Difficulty breathing, right-sided discomfort TECHNIQUE: Frontal and lateral views of the chest are obtained. FINDINGS: Heart size is within normal limits. Trachea is midline. No focal consolidation, pneumothor ax or pleural effusion. No significant interval change. IMPRESSION: No acute pulmonary disease. No significant interval change.
== END | disposition home or self-care (01) ==
LOC: RADXRMAIN 11:42
PROVIDERS: ATTEND Nurse Practitioner
DX: R06.00 Dyspnea, unspecified (principal)
CPT/HCPCS: 71046

== ENCOUNTER 2022-03-30 19:25 | Observation (INO) | payer BC, MEDICARE ==
--- NOTE | 2022-03-30 19:39 | ED ---
General Adult HPI - General Chief complaint: Syncope Stated complaint: Near syncope Time Seen by Provider: 03/30/22 19:26 Source: patient, EMS, RN notes reviewed Mode of arrival: EMS Limitations: no limitations - History of Present Illness Initial comments: Patient is a pleasant 67-year-old male presenting to the emergency Department with syncopal versus near syncopal episode. Patient was at the park with family. Patient suddenly felt nauseated and short of breath and felt like he is about to pass out. Patient does not believe he passed out however states he may have for a second. Patient states he may feel a little bit short of breath at this time otherwise no other complaints. No chest pain. No abdominal pain. No headache or confusion or weakness. No history of similar symptoms previously. - Related Data Home Medications Medication Instructions Recorded Confirmed Citalopram Hydrobromide [CeleXA] 10 mg PO HS 03/30/22 03/30/22 Allergies Allergy/AdvReac Type Severity Reaction Status Date / Time No Known Allergies Allergy Verified 03/30/22 21:20 Review of Systems ROS Statement: Those systems with pertinent positive or pertinent negative responses have been documented in the HPI. ROS Other: All systems not noted in ROS Statement are negative. Constitutional: Denies: fever Eyes: Denies: eye pain ENT: Denies: ear pain Respiratory: Reports: as per HPI Cardiovascular: Denies: chest pain Endocrine: Denies: fatigue Gastrointestinal: Reports: nausea. Denies: abdominal pain, vomiting Genitourinary: Denies: urgency Musculoskeletal: Denies: back pain Skin: Denies: rash Neurological: Denies: headache, weakness, numbness, paresthesias, confusion Past Medical History Past Medical History: COPD, Diabetes Mellitus History of Any Multi-Drug Resistant Organisms: None Reported Past Surgical History: Orthopedic Surgery Past Psychological History: Depression Smoking Status: Current every day smoker Past Alcohol Use History: Rare Past Drug Use History: None Reported - Past Family History Mother Family Medical History: Myocardial Infarction ([place]) General Exam Limitations: no limitations General appearance: alert, in no apparent distress Head exam: Present: normocephalic Eye exam: Present: normal appearance, PERRL, EOMI ENT exam: Present: normal oropharynx Neck exam: Present: normal inspection Respiratory exam: Present: normal lung sounds bilaterally. Absent: chest wall tenderness Cardiovascular Exam: Present: regular rate, normal rhythm Expanded Peripheral pulses: 2+: Radial (R), Radial (L), Dorsalis Pedis (R), Dorsalis Pedis (L) GI/Abdominal exam: Present: soft. Absent: distended, tenderness, guarding, rebound, rigid, pulsatile mass Extremities exam: Present: normal inspection. Absent: pedal edema, calf tenderness Neurological exam: Present: alert, oriented X3, CN II-XII intact. Absent: motor sensory deficit Expanded Neurological exam: Present: protecting the airway Speech: Present: fluid speech Cranial nerves: EOM's Intact: Normal Sensory exam: Upper Extremity Light Touch: Normal, Lower Extremity Light Touch: Normal Motor strength exam: RUE: 5, LUE: 5, RLE: 5, LLE: 5 Eye Response: (4) open spontaneously Motor Response: (6) obeys commands Verbal Response: (5) oriented Psychiatric exam: Present: normal affect, normal mood Skin exam: Present: normal color Course Vital Signs 03/30/22 19:29 Temperature 97.2 F L Pulse Rate 94 Respiratory 22 Rate Blood Pressure 144/98 O2 Sat by Pulse 98 Oximetry EKG Findings - EKG Comments: EKG Findings:: Sinus rhythm rate 84. TN 19. QRS 110. QT 366. QTc 407. Left axis. Incomplete right bundle-branch block. No acute ST change. Medical Decision Making - Medical Decision Making Patient reevaluated and resting comfortably in bed. Patient states he did feel a little bit short of breath when he got up to move to the computed tomography scan table. Patient and family have been updated on results and plan. Practitioner Jeffy has been paged for admission covering with Dr. Galindo, admits for Dr. España. Family adds that patient did have a full syncopal episode and was unresponsive for several seconds. Patient did complain of nausea and shortness of breath and was diaphoretic. - Lab Data Result diagrams: 03/30/22 19:59 03/30/22 21:19 Lab Results 03/30/22 03/30/22 03/30/22 Range/Units 19:59 19:59 21:19 WBC 12.9 H (3.8-10.6) k/uL RBC 5.43 (4.30-5.90) m/uL Hgb 15.5 (13.0-17.5) gm/dL Hct 48.7 (39.0-53.0) % MCV 89.8 (80.0-100.0) fL MCH 28.6 (25.0-35.0) pg MCHC 31.8 (31.0-37.0) g/dL RDW 12.8 (11.5-15.5) % Plt Count 212 (150-450) k/uL MPV 9.2 Neutrophils % 78 % Lymphocytes % 13 % Monocytes % 5 % Eosinophils % 2 % Basophils % 1 % Neutrophils # 10.2 H (1.3-7.7) k/uL Lymphocytes # 1.7 (1.0-4.8) k/uL Monocytes # 0.7 (0-1.0) k/uL Eosinophils # 0.3 (0-0.7) k/uL Basophils # 0.1 (0-0.2) k/uL PT 9.8 (9.0-12.0) sec INR 0.9 (<1.2) APTT 22.0 (22.0-30.0) sec D-Dimer 1.13 H (<0.60) mg/L FEU Sodium 137 (137-145) mmol/L Potassium 4.5 (3.5-5.1) mmol/L Chloride 102 (98-107) mmol/L Carbon Dioxide 26 (22-30) mmol/L Anion Gap 9 mmol/L BUN 25 H (9-20) mg/dL Creatinine 1.04 (0.66-1.25) mg/dL Est GFR (CKD-EPI)AfAm 87 (>60 ml/min/1.73 sqM) Est GFR (CKD-EPI)NonAf 75 (>60 ml/min/1.73 sqM) Glucose 113 H (74-99) mg/dL Calcium 9.5 (8.4-10.2) mg/dL Total Bilirubin 0.3 (0.2-1.3) mg/dL AST 24 (17-59) U/L ALT 22 (4-49) U/L Alkaline Phosphatase 109 (38-126) U/L Troponin I (0.000-0.034) ng/mL Total Protein 7.3 (6.3-8.2) g/dL Albumin 4.5 (3.5-5.0) g/dL 08/06/22 Range/Units 21:19 WBC (3.8-10.6) k/uL RBC (4.30-5.90) m/uL Hgb (13.0-17.5) gm/dL Hct (39.0-53.0) % MCV (80.0-100.0) fL MCH (25.0-35.0) pg MCHC (31.0-37.0) g/dL RDW (11.5-15.5) % Plt Count (150-450) k/uL MPV Neutrophils % % Lymphocytes % % Monocytes % % Eosinophils % % Basophils % % Neutrophils # (1.3-7.7) k/uL Lymphocytes # (1.0-4.8) k/uL Monocytes # (0-1.0) k/uL Eosinophils # (0-0.7) k/uL Basophils # (0-0.2) k/uL PT (9.0-12.0) sec INR (<1.2) APTT (22.0-30.0) sec D-Dimer (<0.60) mg/L FEU Sodium (137-145) mmol/L Potassium (3.5-5.1) mmol/L Chloride (98-107) mmol/L Carbon Dioxide (22-30) mmol/L Anion Gap mmol/L BUN (9-20) mg/dL Creatinine (0.66-1.25) mg/dL Est GFR (CKD-EPI)AfAm (>60 ml/min/1.73 sqM) Est GFR (CKD-EPI)NonAf (>60 ml/min/1.73 sqM) Glucose (74-99) mg/dL Calcium (8.4-10.2) mg/dL Total Bilirubin (0.2-1.3) mg/dL AST (17-59) U/L ALT (4-49) U/L Alkaline Phosphatase (38-126) U/L Troponin I <0.012 (0.000-0.034) ng/mL Total Protein (6.3-8.2) g/dL Albumin (3.5-5.0) g/dL - Radiology Data Radiology results: report reviewed (CT chest negative for pulmonary embolism.), image reviewed (Chest x-ray shows left basilar atelectasis or infiltrate) Disposition Clinical Impression: Syncope Disposition: ADMITTED IP TO THIS HOSP Is patient prescribed a controlled substance at d/c from ED?: No Referrals: Rommel España MD [Primary Care Provider] - 1-2 days Time of Disposition: 22:59
[2022-03-30 20:15] LABS: Basophils # (A) 0.1 k/uL (0-0.2); Basophils % (A) 1 %; Eosinophils # (A) 0.3 k/uL (0-0.7); Eosinophils % (A) 2 %; HCT 48.7 % (39.0-53.0); HGB 15.5 gm/dL (13.0-17.5); Lymphocytes # (A) 1.7 k/uL (1.0-4.8); Lymphocytes % (A) 13 %; MCH 28.6 pg (25.0-35.0); MCHC 31.8 g/dL (31.0-37.0); MCV 89.8 fL (80.0-100.0); Mean Platelet Volume 9.2; Monocytes # (A) 0.7 k/uL (0-1.0); Monocytes % (A) 5 %; Neutrophils # (A) 10.2 k/uL (1.3-7.7); Neutrophils % (A) 78 %; Platelet Count 212 k/uL (150-450); RBC 5.43 m/uL (4.30-5.90); RDW 12.8 % (11.5-15.5); WBC 12.9 k/uL (3.8-10.6)
[2022-03-30 20:46] LABS: INR 0.9 (<1.2); Prothrombin Time 9.8 sec (9.0-12.0)
--- NOTE | 2022-03-30 20:57 | XR ---
EXAMINATION TYPE: XR chest 2V DATE OF EXAM: 03/30/2022 COMPARISON: 01/12/2021 HISTORY: Short of breath TECHNIQUE: FINDINGS: There is evidence of some minimal infiltrate left lung base. The other lung marroquin are kaylee r. Heart and mediastinum are normal. There are no hilar masses. No pleural effusion. Bony thorax is i ntact. There are chest leads. IMPRESSION: There is some minimal left basilar infiltrate or atelectasis not significantly different than last exam.
[2022-03-30 22:04] LABS: Albumin 4.5 g/dL (3.5-5.0); Calcium 9.5 mg/dL (8.4-10.2); Potassium 4.5 mmol/L (3.5-5.1); Total Bilirubin 0.3 mg/dL (0.2-1.3); Total Protein 7.3 g/dL (6.3-8.2)
--- NOTE | 2022-03-30 22:43 | CT ---
EXAMINATION TYPE: CT angio chest DATE OF EXAM: 03/30/2022 COMPARISON: None HISTORY: SOB CT DLP: 1025.9 mGycm Automated exposure control for dose reduction was used. CONTRAST: Performed with IV Contrast, patient injected with 100 mL of Isovue 370. Images obtained from the thoracic inlet to the diaphragm with the IV contrast. There are Three-D post processed images. There is some mild pleural thickening at the right lung apex. The lungs are clear of infiltrate. No p leural effusion. Heart size is normal. No pericardial effusion. There are no hilar masses. There is n o mediastinal adenopathy. Thoracic aorta is intact. No aneurysm or dissection. The ascending aorta me asures 3 cm. There is no evidence of filling defect in the pulmonary arteries. The thoracic spine is intact. No compression fracture. Sternum is intact. Upper abdominal soft tissue s are intact. IMPRESSION: Negative exam. No evidence of pulmonary embolism.
[2022-03-30] MEDS ORDERED: NALOXONE 0.4 MG/ML 1 ML VIAL IV PRN (22:59)
[2022-03-30] MEDS ORDERED: SODIUM CHLORIDE 0.9% 1,000 ML IV SCH (23:00)
[2022-03-31] MEDS ORDERED: NICOTINE 21MG/24HR PATCH TRANSDERM SCH (09:00)
[2022-03-31 09:16] VITALS: BP 108/61; PULSE 66; RESP 18; TEMP 97.6
--- NOTE | 2022-03-31 09:59 | P.CRDCN ---
History of Present Illness Consult date: 03/31/22 Chief complaint: Presyncope History of present illness: This is a 67-year-old gentleman with a past medical history significant for chronic obstructive pulmonary disease and no prior cardiac history of CAD or congestive heart failure or cardiac arrhythmia presented to the hospital after he had an episode of presyncope versus syncope witnessed by his family. The patient was in a camp yesterday and it was very hot and humid when he was sittin g and suddenly he felt he is about to lose his consciousness but he believes that he lost his consciousness for a few seconds. No prodromal symptoms of warm feeling or dizziness or lightheadedness or heart racing or fluttering. No symptoms of chest pain or chest discomfort. He does have shortness of breath related to COPD. For that reason he was brought to the hospital where he underwent a workup including EKG showing sinus rhythm with no significant abnormalities and also cardiac enzymes came in to be unremarkable. The rest of the blood work came in to be unremarkable. It was noticed that his pressure has been marginally low. He stated that he was dehydrated yesterday when he had andrea t episode. Past Medical History Past Medical History: COPD, Diabetes Mellitus History of Any Multi-Drug Resistant Organisms: None Reported Past Surgical History: Orthopedic Surgery Past Psychological History: Depression Smoking Status: Current every day smoker Past Alcohol Use History: Rare Past Drug Use History: None Reported - Past Family History Mother Family Medical History: Myocardial Infarction ([place]) Medications and Allergies Home Medications Medication Instructions Recorded Confirmed Type Citalopram Hydrobromide [CeleXA] 10 mg PO HS 03/30/22 03/30/22 History Allergies Allergy/AdvReac Type Severity Reaction Status Date / Time No Known Allergies Allergy Verified 03/30/22 21:20 Physical Exam Vitals: Vital Signs Temp Pulse Pulse Resp BP BP Pulse Ox 03/31/22 08:50 98 03/31/22 07:00 97.6 F 66 18 108/61 94 L 03/31/22 02:00 22 03/31/22 01:41 97.7 F 67 22 121/76 98 03/30/22 23:13 80 20 127/82 96 03/30/22 19:29 97.2 F L 94 22 144/98 98 Intake and Output 03/30/22 03/31/22 03/31/22 22:59 06:59 14:59 Intake Total 250 Balance 250 Intake: Oral 250 Other: Voiding Method Toilet Toilet Weight 136.078 kg 136.078 kg - Constitutional General appearance: no acute distress - Respiratory Respiratory: bilateral: CTA - Cardiovascular Rhythm: regular Heart sounds: normal: S1, S2 Results 03/30/22 19:59 03/30/22 21:19 Cardiac Enzymes 03/30/22 03/30/22 03/30/22 Range/Units 21:19 21:19 23:45 AST 24 (17-59) U/L Troponin I <0.012 <0.012 (0.000-0.034) ng/mL 03/31/22 Range/Units 03:17 AST (17-59) U/L Troponin I <0.012 (0.000-0.034) ng/mL Coagulation 03/30/22 Range/Units 19:59 PT 9.8 (9.0-12.0) sec APTT 22.0 (22.0-30.0) sec CBC 03/30/22 Range/Units 19:59 WBC 12.9 H (3.8-10.6) k/uL RBC 5.43 (4.30-5.90) m/uL Hgb 15.5 (13.0-17.5) gm/dL Hct 48.7 (39.0-53.0) % Plt Count 212 (150-450) k/uL Comprehensive Metabolic Panel 03/30/22 Range/Units 21:19 Sodium 137 (137-145) mmol/L Potassium 4.5 (3.5-5.1) mmol/L Chloride 102 (98-107) mmol/L Carbon Dioxide 26 (22-30) mmol/L BUN 25 H (9-20) mg/dL Creatinine 1.04 (0.66-1.25) mg/dL Glucose 113 H (74-99) mg/dL Calcium 9.5 (8.4-10.2) mg/dL AST 24 (17-59) U/L ALT 22 (4-49) U/L Alkaline Phosphatase 109 (38-126) U/L Total Protein 7.3 (6.3-8.2) g/dL Albumin 4.5 (3.5-5.0) g/dL Current Medications Generic Name Dose Route Start Last Admin Trade Name Freq PRN Reason Stop Dose Admin Citalopram Hydrobromide 10 mg 03/31/22 21:00 Citalopram Hydrobromide 10 Mg Tab PO HS KAYLENE Sodium Chloride 1,000 mls @ 75 mls/hr 03/30/22 23:00 03/30/22 23:07 Saline 0.9% IV 75 mls/hr .[id number] KAYLENE Administration Naloxone HCl 0.2 mg 03/30/22 22:59 Naloxone 0.4 Mg/Ml 1 Ml Vial IV Q2M PRN Opioid Reversal Nicotine 1 patch 03/31/22 09:00 03/31/22 07:15 Nicotine 21mg/24hr Patch TRANSDERM 1 patch DAILY KAYLENE Administration Intake and Output 03/30/22 03/31/22 03/31/22 22:59 06:59 14:59 Intake Total 250 Balance 250 Intake: Oral 250 Other: Voiding Method Toilet Toilet Weight 136.078 kg 136.078 kg 03/30/22 19:59 03/30/22 21:19 Assessment and Plan Assessment: Assessment #1 presyncope versus syncope #2 margin a low blood pressure #3 COPD Plan #1 the episode could be related to vasovagal versus cardiac arrhythmia #2 his workup in the hospital so far has been unremarkable #3 the patient need to have an event monitor for the as an outpatient #4 he would like to go home
--- NOTE | 2022-03-31 10:31 | P.HPIM ---
History of Present Illness Patient presents a 67-year-old male came in with the complaints of loss of consciousness. Patient was camping yesterday and felt didn't feel dehydrated light. N did lose consciousness. Patient denied any palpitations or any histor y of coronary artery disease or cardiac arrhythmias in the past EKG shows sinus rhythm without any acute ST-T wave changes chest x-ray did not show any significant abnormality. Patient has mildly elevated serum creatinine of 1.04 BUN is elevated to 25. Patient received IV fluids overnight feeling better. Patient does smoke about a pack of cigarettes where he does have history of COPD denied any shortness of breath cough at this time. REVIEW OF SYSTEMS: CONSTITUTIONAL: No fever, no malaise, no fatigue. HEENT: No recent visual problems or hearing problems. Denied any sore throat. CARDIOVASCULAR: No chest pain, orthopnea, PND, no palpitations. PULMONARY: No shortness of breath, no cough, no hemoptysis. GASTROINTESTINAL: No diarrhea, no nausea, no vomiting, no abdominal pain. NEUROLOGICAL: No headaches, no weakness, no numbness. HEMATOLOGICAL: Denies any bleeding or petechiae. GENITOURINARY: Denies any burning micturition, frequency, or urgency. MUSCULOSKELETAL/RHEUMATOLOGICAL: Denies any joint pain, swelling, or any muscle pain. ENDOCRINE: Denies any polyuria or polydipsia. The rest of the 14-point review of systems is negative. PHYSICAL EXAMINATION: GENERAL: The patient is alert and oriented x3, not in any acute distress. Well developed, well nourished. HEENT: Pupils are round and equally reacting to light. EOMI. No scleral icterus. No conjunctival pallor. Normocephalic, atraumatic. No pharyngeal erythema. No thyromegaly. CARDIOVASCULAR: S1 and S2 present. No murmurs, rubs, or gallops. PULMONARY: Chest is clear to auscultation, no wheezing or crackles. ABDOMEN: Soft, nontender, nondistended, normoactive bowel sounds. No palpable organomegaly. MUSCULOSKELETAL: No joint swelling or deformity. EXTREMITIES: No cyanosis, clubbing, or pedal edema. NEUROLOGICAL: Gross neurological examination did not reveal any focal deficits. SKIN: No rashes. Assessment and plan -Syncope: Secondary to intravascular depletion dehydration patient is on IV fluids is clinically doing well will be discharged today will follow with cardiology as an outpatient for monitor. -COPD without any acute exacerbation and cessation counseling was provided -Depression Patient will be discharged today Past Medical History Past Medical History: COPD, Diabetes Mellitus History of Any Multi-Drug Resistant Organisms: None Reported Past Surgical History: Orthopedic Surgery Past Psychological History: Depression Smoking Status: Current every day smoker Past Alcohol Use History: Rare Past Drug Use History: None Reported - Past Family History Mother Family Medical History: Myocardial Infarction ([place]) Medications and Allergies Home Medications Medication Instructions Recorded Confirmed Type Citalopram Hydrobromide [CeleXA] 10 mg PO HS 03/30/22 03/30/22 History Nicotine 21Mg/24Hr Patch [Habitrol] 1 each TRANSDERM DAILY #14 patch 03/31/22 Rx Allergies Allergy/AdvReac Type Severity Reaction Status Date / Time No Known Allergies Allergy Verified 03/30/22 21:20 Physical Exam Vitals: Vital Signs Temp Pulse Pulse Resp BP BP Pulse Ox 03/31/22 08:50 98 03/31/22 07:00 97.6 F 66 18 108/61 94 L 03/31/22 02:00 22 03/31/22 01:41 97.7 F 67 22 121/76 98 03/30/22 23:13 80 20 127/82 96 03/30/22 19:29 97.2 F L 94 22 144/98 98 Intake and Output 03/30/22 03/31/22 03/31/22 22:59 06:59 14:59 Intake Total 250 Balance 250 Intake: Oral 250 Other: Voiding Method Toilet Toilet Weight 136.078 kg 136.078 kg Results CBC & Chem 7: 03/30/22 19:59 03/30/22 21:19 Labs: Abnormal Lab Results - Last 24 Hours (Table) 03/30/22 03/30/22 03/30/22 Range/Units 19:59 19:59 21:19 WBC 12.9 H (3.8-10.6) k/uL Neutrophils # 10.2 H (1.3-7.7) k/uL D-Dimer 1.13 H (<0.60) mg/L FEU BUN 25 H (9-20) mg/dL Glucose 113 H (74-99) mg/dL
--- NOTE | 2022-03-31 10:32 | P.DS ---
Providers Date of admission: 03/30/22 22:59 Attending physician: Susy Galindo Consults: 03/30/22 22:59 Consult Physician Urgent Consulting Provider: Bc Melendez Consult Reason/Comments: syncope Do you want consulting provider notified?: Yes Primary care physician: Rommel España Hospital Course: Please refer to my history of present illness for further details Plan - Discharge Summary Discharge Rx Participant: No New Discharge Prescriptions: New Nicotine 21Mg/24Hr Patch [Habitrol] 1 each TRANSDERM DAILY #14 patch No Action Citalopram Hydrobromide [CeleXA] 10 mg PO HS Discharge Medication List Citalopram Hydrobromide [CeleXA] 10 mg PO HS 03/30/22 [History] Nicotine 21Mg/24Hr Patch [Habitrol] 1 each TRANSDERM DAILY #14 patch 03/31/22 [Rx] Follow up Appointment(s)/Referral(s): Rommel España MD [Primary Care Provider] - 3 Days Bc Melendez MD [STAFF PHYSICIAN] - 1 Week Patient Instructions/Handouts: Syncope (DC) Discharge Disposition: HOME SELF-CARE
[2022-03-31] MEDS ORDERED: CITALOPRAM HYDROBROMIDE 10 MG TAB PO SCH (21:00)
== END 2022-03-31 12:05 | disposition home or self-care (01) ==
LOC: EC 19:25 → 6NMEDSUR 22:59
PROVIDERS: ADMIT Hospitalist; ATTEND Hospitalist
DX: E86.0 Dehydration (principal); E86.9 Volume depletion, unspecified; I95.9 Hypotension, unspecified; J44.9 Chronic obstructive pulmonary disease, unspecified; E11.9 Type 2 diabetes mellitus without complications; I45.10 Unspecified right bundle-branch block; R79.89 Other specified abnormal findings of blood chemistry; F32.A Depression, unspecified; F17.210 Nicotine dependence, cigarettes, uncomplicated; Z79.899 Other long term (current) drug therapy; Z82.49 Family history of ischemic heart disease and other diseases of the circulatory system; Z71.6 Tobacco abuse counseling
CPT/HCPCS: 99285; 36415; 94760; 93005; 85379; 80053; 84484 ×2; 85025; 85610; 85730; 71046; 71275; G0378 ×2; S4990; Q9967